=== PATIENT | male | born 1955 | race Caucasian/White ===

== ENCOUNTER 2017-06-09 08:15 | Outpatient (RCR) ==
--- NOTE | 2017-05-20 11:37 | RS.OPPTEV2 ---
Date of Note: 05/19/17 Visit #: 1 Date of Evaluation: 05/19/17 Payer Source: Insurance Surgery Performed?: Yes Treatment Diagnosis: Left knee pain, s/p medial and lateral meniscus repair History of Condition/Mechanism of Injury:: Patient reports left knee began in July of 2016. He thinks it may have occurred when he was climbing a ladder. States he had surgery on the left knee 3 months ago, which involved trimming tears from the medial and lateral meniscus. Prior Level of Function.....Patient was independent with: ADL's, Self Care, Work /Vocation, Caregiving, Ambulation/Mobility, Community Integration/Access Functional Limitations: Sitting, Standing, Bending, Squatting, Ambulation, Community Access/Integration Current Subjective/complaints:: Patient reports left knee continues to swell and have pain. States his surgery involved trimming both the medial and lateral meniscus. He reports that he has had no previous injuries or surgeries to the left knee. He denies tingling or numbness in the left LE. States he has been having swelling all the way into his ankle. States he has more knee pain with certain movements. He does not tolerate prolonged standing or walking , due to pain and increased swelling with activity. Also reports stiffness in the knee after he sits very long. Reports at times, turning over in bed will wake him up. 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 He wonders if having Psoriasis could be complicating his healing from his surgery. Treatment Side (optional): Left Medical History Medical History: Hypertension, Arthritis Medical History Comments:: Psoriasis Surgical History Comments:: Right knee arthroscopic surgery 20 years ago. Smoking Status: Never smoker Patient's Goals: His goal is to regain left knee AROM and return to his previous level of function. Pain Assessment - Pain Description Pain Location: left knee Current Pain Intensity: 0/10 Worst Pain Intensity: 7-8/10 Functional Outcome Measure LE Functional Scale: 30 (30/80=62.5% impairment) - G Codes & Severity Modifier G Codes & Modifier: NA Source of G Code score: NA Observation - Observation Inspection: Patient demonstrates clean, well-healing incisions to the left knee from his surgery. Demonstrates patches of Psoriasis throughout the LE. Demonstrates obvious swelling at the left knee and lower leg to the ankle. Girth Measurement Lower: Left LE: superior pole of patella: 44 cm, midpatella 41 cm, malleoli 36 cm Gait - Gait Pattern Gait Comments: Patient ambulates without an assistive device. Demonstrates decreased stance on the left LE. Also demonstrates decreased left hip and knee flexion and decreased heel strike. - Left Knee ROM Left Knee Extension: -10 degrees from full extension Left Knee Flexion: 100 (degrees AROM) Knee ROM Limitations: Soft Tissue Tightness, Pain - Right Knee ROM Right Knee Extension: full extension Right Knee Flexion: 130 (degrees AROM) - Left Knee Strength Left Knee Extension: 4 Good Left Knee Flexion: 4 Good - Right Knee Strength Right Knee Extension: 5 Normal Right Knee Flexion: 5 Normal Sensation - Sensation Right Lower Extremity: Intact/Normal Left Lower Extremity: Intact/Normal - Treatment Modality: Electrical Stim Unattended Parameters/Method Applied: 4 pads HVGS crossed current X 20 mins to the left knee with cold pack to reduce swelling. treatment up to 110 peak volts - Heat/Cryotherapy Treatment: Cryotherapy (with Estim ) Interventions - Exercise/Activities/Manual Therapy Exercises/Activities: Patient instructed in ankle pumps, SLR's, standing HS curls, and heel slides in supine for HEP. Discussed the knee joint and meniscus. Advised to avoid twisting his leg with his foot planted. Recommended he continue icing the knee. Manual Therapy: NA HOME EXERCISE PROGRAM: ankle pumps, SLR's, standing HS curls, and heel slides - Charges Total Direct Minutes: 35 mins Total Treatment Time: 55 mins Procedures billed for this date of service:: SHAREE Stewart , CP, Estim Assessment Assessment: Patient presents to therapy three months s/p repair (trimming) of the medial and lateral meniscus of the left knee. He reports having continued pain and swelling in the left knee and lower leg. He reports limited tolerance for weight bearing activities and stiffness following prolonged sitting. 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 He is unable to work, as he usually has to crawl on his knees and climb ladders. He will benefit from modalities to help reduce swelling and progression of exercises and use of manual therapy to regain functional AROM and reduce his pain with activity. Patient Education: Education of diagnosis, Body/Joint mechanics, Home Exercise Program, Home Safety, Activity Modification, Education of Plan of Care Rehab Potential: Good Short Term Goals Goal #1: Patient independent in basic HEP. Goal to be met by: 06/03/17 Goal #2: Left knee AROM full extension. Goal to be met by: 06/03/17 Goal #3: Left knee active flexion to 120 degrees. Goal to be met by: 06/03/17 Goal #4: Left quad strength improved to 4+/5. Goal to be met by: 06/03/17 Machine Shop Specialist Goals Goal #1: Pt will regain left knee AROM WFL's to perform all ADL's w/o difficulty. Goal to be met by: 06/24/17 Goal #2: Pt will amb. community distances with minimal gait deviation. Goal to be met by: 06/24/17 Goal #3: Score on LE functional scale improved to 55/80. Goal to be met by: 06/24/17 Goal #4: Pt to perform ADL's and functional activities with minimal left knee pain. Goal to be met by: 06/24/17 Plan - Treatment to be Provided Procedures: Therapeutic Exercises, Therapeutic Activity, Manual Therapy, Patient Education Modalities: Electrical Stimulation, Cryotherapy - Treatment Plan Frequency: 2 X week Duration: 4 weeks ORDER # VISITS AND/OR THROUGH DATE: 06/24/17 - Treatment Code (1) Knee pain Qualifiers: Chronicity: acute Laterality: left Qualified Description: Acute pain of left knee Qualifier Code(s): (M25.562) Pain in left knee (2) Knee effusion Qualifiers: Laterality: left Qualified Description: Effusion of left knee Qualifier Code(s): (M25.462) Effusion, left knee (3) S/P lateral meniscal repair Comments: Z98.890 S/p medial and lateral meniscus repair
--- NOTE | 2017-05-21 14:53 | RS.OPPTDN ---
Subjective Date of Note: 05/21/17 Visit #: 2 Date of Evaluation: 05/19/17 Payer Source: Insurance Treatment Diagnosis: Left knee pain, s/p medial and lateral meniscus repair Current Subjective/complaints:: Patient reports first treatment of cold pack and Estim to the left knee helped with pain and swelling. Pain Assessment - Pain Description Pain Location: left knee Current Pain Intensity: mild - Treatment Modality: Electrical Stim Unattended Parameters/Method Applied: [id number] HVGC to 150p.v. with 4 large pads to the left knee with cold pack. Patient Position: Supine - Heat/Cryotherapy Treatment: Cryotherapy ([id number] with Estim ) Interventions - Exercise/Activities/Manual Therapy Exercises/Activities: PROM left knee flexion and extension. Hamstring stretching. Ankle pumps and quad sets. SLR 4s/5reps and SLR/VMO 2s/5reps. Isometric hip add. SAQ and isometric ham sets, 2s/10reps each. Ended with additional ROM of the left and ham stretching. Total minutes of Exercise: 20mins Manual Therapy: NA HOME EXERCISE PROGRAM: ankle pumps, SLR's, standing HS curls, and heel Quad sets , SLR/VMO - Charges Total Direct Minutes: 20mins Total Treatment Time: 40mins Procedures billed for this date of service:: EX, CP, Estim unattended Assessment: Patient responding to modalities and gentle exercise. Patient Education: Body/Joint mechanics, Home Exercise Program, Home Safety, Activity Modification Patient demonstrates compliance with HEP?: Yes Short Term Goals Goal #1: Patient independent in basic HEP. Goal to be met by: 06/03/17 Progress towards Goal:: Progressing Goal #2: Left knee AROM full extension. Goal to be met by: 06/03/17 Progress towards Goal:: Progressing Goal #3: Left knee active flexion to 120 degrees. Goal to be met by: 06/03/17 Progress towards Goal:: Progressing Goal #4: Left quad strength improved to 4+/5. Goal to be met by: 06/03/17 Retirement Goals Goal #1: Pt will regain left knee AROM WFL's to perform all ADL's w/o difficulty. Goal to be met by: 06/24/17 Goal #2: Pt will amb. community distances with minimal gait deviation. Goal to be met by: 06/24/17 Goal #3: Score on LE functional scale improved to 55/80. Goal to be met by: 06/24/17 Goal #4: Pt to perform ADL's and functional activities with minimal left knee pain. Goal to be met by: 06/24/17 Plan PLAN OF CARE EXPIRES ON:: 06/24/17 ORDER # VISITS AND/OR THROUGH DATE: 06/24/17 PLAN: Continue Plan of Care
--- NOTE | 2017-05-24 09:21 | RS.OPPTDN ---
Subjective Date of Note: 05/24/17 Visit #: 3 Date of Evaluation: 05/19/17 Payer Source: Insurance Treatment Diagnosis: Left knee pain, s/p medial and lateral meniscus repair Current Subjective/complaints:: Patient reporrts no current pain at rest,but increases as the day progresses.He continues to feel the therapy is helping. Pain Assessment - Pain Description Pain Location: left knee Pain Description: Dull, Aching Current Pain Intensity: o at rest Worst Pain Intensity: 6-7 later in the day - Treatment Modality: Electrical Stim Unattended Parameters/Method Applied: 20 mins.high volt to L knee ,channel 1 @ 95 - 115 pv, channel 2 @ 125 - 145 pv. Patient Position: Supine - Heat/Cryotherapy Treatment: Cryotherapy (concurrent with e-stim) Interventions - Exercise/Activities/Manual Therapy Exercises/Activities: HEP review.PROM left knee flexion and extension. Hamstring stretching. Ankle pumps and quad sets. SLR 2/10 and SLR/VMO 2s/ 10reps. Ended session with standing hamstring curls. Manual Therapy: NA HOME EXERCISE PROGRAM: ankle pumps, SLR's, standing HS curls, and heel Quad sets , SLR/VMO - Charges Total Direct Minutes: 20 Total Treatment Time: 40 Procedures billed for this date of service:: cp,e-stim,ex 1 Assessment: Patient tolerates exercises well,no report of sharp pain .He reports tightness with passive heelslides as the flexion increases.He responds well to hamstring stretches today ,has soft end feel present.The L knee edema is lessening,he reports it does vary dependent upon amount of activity. Patient Education: Body/Joint mechanics, Home Exercise Program, Home Safety, Education of Plan of Care Patient demonstrates compliance with HEP?: Yes Short Term Goals Goal #1: Patient independent in basic HEP. Goal to be met by: 06/03/17 Progress towards Goal:: Progressing Goal #2: Left knee AROM full extension. Goal to be met by: 06/03/17 Progress towards Goal:: Progressing Goal #3: Left knee active flexion to 120 degrees. Goal to be met by: 06/03/17 Progress towards Goal:: Progressing Goal #4: Left quad strength improved to 4+/5. Goal to be met by: 06/03/17 Progress towards Goal:: Progressing Improvement Manager Goals Goal #1: Pt will regain left knee AROM WFL's to perform all ADL's w/o difficulty. Goal to be met by: 06/24/17 Goal #2: Pt will amb. community distances with minimal gait deviation. Goal to be met by: 06/24/17 Goal #3: Score on LE functional scale improved to 55/80. Goal to be met by: 06/24/17 Goal #4: Pt to perform ADL's and functional activities with minimal left knee pain. Goal to be met by: 06/24/17 Plan PLAN OF CARE EXPIRES ON:: 06/24/17 ORDER # VISITS AND/OR THROUGH DATE: 06/24/17 PLAN: Continue Plan of Care
--- NOTE | 2017-05-27 09:07 | RS.OPPTDN ---
Subjective Date of Note: 05/27/17 Visit #: 4 Date of Evaluation: 05/19/17 Payer Source: Insurance Treatment Diagnosis: Left knee pain, s/p medial and lateral meniscus repair Current Subjective/complaints:: Reports the knee feels swollen and tight currently,has slight antalgic gait this morning. Pain Assessment - Pain Description Pain Location: left knee Pain Description: Dull, Aching Current Pain Intensity: 0 at rest - Treatment Modality: Electrical Stim Unattended Parameters/Method Applied: 20 mins. high volt to L knee,channel 1 and 2 @ 155 - 185 pv. - Heat/Cryotherapy Treatment: Cryotherapy (concurrent with e - stim) Interventions - Exercise/Activities/Manual Therapy Exercises/Activities: 20 mins.HEP review.PROM left knee flexion and extension. Hamstring stretching. Ankle pumps and quad sets. SLR 3/10 and SLR VMO 1/10 reps.Passive extension on bolster x 30 secs. Total minutes of Exercise: 20 Manual Therapy: NA Total minutes of Manual Therapy: 0 HOME EXERCISE PROGRAM: ankle pumps, SLR's, standing HS curls, and heel Quad sets , SLR/VMO - Objective Findings Observations,measurements,etc.: 110 flexion ,-10 extension - Charges Total Direct Minutes: 20 Total Treatment Time: 40 Procedures billed for this date of service:: cp,e-stim,ex 1 Assessment: Patient has less warmth in the L knee today,has moderate edema medially.He has increased flexion .He reports sharp pain with attempting terminal extension with Qs or SAq. Patient Education: Education of diagnosis, Body/Joint mechanics, Home Exercise Program, Home Safety, Activity Modification, Education of Plan of Care Patient demonstrates compliance with HEP?: Yes Short Term Goals Goal #1: Patient independent in basic HEP. Goal to be met by: 06/03/17 Progress towards Goal:: Progressing Goal #2: Left knee AROM full extension. Goal to be met by: 06/03/17 Progress towards Goal:: No Change Goal #3: Left knee active flexion to 120 degrees. Goal to be met by: 06/03/17 Progress towards Goal:: Progressing Goal #4: Left quad strength improved to 4+/5. Goal to be met by: 06/03/17 Progress towards Goal:: Progressing Fdc Goals Goal #1: Pt will regain left knee AROM WFL's to perform all ADL's w/o difficulty. Goal to be met by: 06/24/17 Progress towards goal: Progressing Goal #2: Pt will amb. community distances with minimal gait deviation. Goal to be met by: 06/24/17 Goal #3: Score on LE functional scale improved to 55/80. Goal to be met by: 06/24/17 Goal #4: Pt to perform ADL's and functional activities with minimal left knee pain. Goal to be met by: 06/24/17 Plan PLAN OF CARE EXPIRES ON:: 06/24/17 ORDER # VISITS AND/OR THROUGH DATE: 06/24/17 PLAN: Continue Plan of Care
--- NOTE | 2017-06-02 16:43 | RS.OPPTDN ---
Subjective Date of Note: 06/02/17 Visit #: 5 Date of Evaluation: 05/19/17 Payer Source: Insurance Treatment Diagnosis: Left knee pain, s/p medial and lateral meniscus repair Current Subjective/complaints:: Patient c/o swelling today to the supra L patella extending to the foot. 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 Pain Assessment - Pain Description Pain Location: left knee Pain Description: Dull, Aching Current Pain Intensity: 0 at rest - Treatment Modality: Electrical Stim Unattended Parameters/Method Applied: hivolt 4 small pads @ 185 pk volts x 20 mins to the L knee following therex. Patient Position: Supine - Heat/Cryotherapy Treatment: Cryotherapy (L knee with estim) Interventions - Exercise/Activities/Manual Therapy Exercises/Activities: 22 mins. Passive stretching for hamstrings and heel cords , patellar mobs, SLR, SLR for VMO, AP, QS multiple reps, hip abd. Manual Therapy: NA HOME EXERCISE PROGRAM: ankle pumps, SLR's, standing HS curls, and heel Quad sets , SLR/VMO - Charges Total Direct Minutes: 22 Total Treatment Time: 42 Procedures billed for this date of service:: cp, estim (un), ex Assessment: Patient experiencing elevation of edema from the L knee to the foot probably related to increased activity at work. However, he was able to demo good flexibility with hamstring stretching today. Finished with estim to verify any improvement with swelling upon departure. Patient Education: Education of diagnosis, Body/Joint mechanics, Home Exercise Program, Home Safety, Activity Modification, Education of Plan of Care Patient demonstrates compliance with HEP?: Yes Short Term Goals Goal #1: Patient independent in basic HEP. Goal to be met by: 06/03/17 Progress towards Goal:: Progressing Goal #2: Left knee AROM full extension. Goal to be met by: 06/03/17 Progress towards Goal:: Progressing Goal #3: Left knee active flexion to 120 degrees. Goal to be met by: 06/03/17 Progress towards Goal:: Progressing Goal #4: Left quad strength improved to 4+/5. Goal to be met by: 06/03/17 Progress towards Goal:: Progressing Half-Way Goals Goal #1: Pt will regain left knee AROM WFL's to perform all ADL's w/o difficulty. Goal to be met by: 06/24/17 Progress towards goal: Progressing Goal #2: Pt will amb. community distances with minimal gait deviation. Goal to be met by: 06/24/17 Goal #3: Score on LE functional scale improved to 55/80. Goal to be met by: 06/24/17 Goal #4: Pt to perform ADL's and functional activities with minimal left knee pain. Goal to be met by: 06/24/17 Plan PLAN OF CARE EXPIRES ON:: 06/24/17 ORDER # VISITS AND/OR THROUGH DATE: 06/24/17 PLAN: Progress Exercises
--- NOTE | 2017-06-04 09:23 | RS.OPPTDN ---
Subjective Date of Note: 06/04/17 Visit #: 6 Date of Evaluation: 05/19/17 Payer Source: Insurance Treatment Diagnosis: Left knee pain, s/p medial and lateral meniscus repair Current Subjective/complaints:: Reports the L knee feels about the same, continues to swell more at the end of the day. Pain Assessment - Pain Description Pain Location: left knee Pain Description: Dull, Aching Current Pain Intensity: 2/10 - Treatment Modality: Electrical Stim Unattended Parameters/Method Applied: 20 mins. high volt,cross current to L knee,channel 1 @ 170 pv,channel 2 @ 190 pv. Patient Position: Supine - Heat/Cryotherapy Treatment: Cryotherapy (concurrent with e-stim) Interventions - Exercise/Activities/Manual Therapy Exercises/Activities: 20 mins. Passive stretching for hamstrings and heel cords , patellar mobs, SLR, SLR for VMO, AP, QS multiple reps, hip abd.Instructed in side-lying hip abduction. Total minutes of Exercise: 20 Manual Therapy: NA Total minutes of Manual Therapy: 0 HOME EXERCISE PROGRAM: ankle pumps, SLR's, standing HS curls, and heel Quad sets , SLR/VMO - Charges Total Direct Minutes: 20 Total Treatment Time: 40 Procedures billed for this date of service:: cp,e-stim,ex 1 Assessment: Patient has improved hamstring extensibility after stretches today.He reports no pain with isometrics,but pain elevates after 90 degrees flexion,described as dull ache.He is attentive to HEP ,motivated to improve. Patient Education: Education of diagnosis, Body/Joint mechanics, Home Exercise Program, Home Safety, Activity Modification, Education of Plan of Care Patient demonstrates compliance with HEP?: Yes Short Term Goals Goal #1: Patient independent in basic HEP. Goal to be met by: 06/03/17 Progress towards Goal:: Progressing Goal #2: Left knee AROM full extension. Goal to be met by: 06/03/17 Progress towards Goal:: Progressing Goal #3: Left knee active flexion to 120 degrees. Goal to be met by: 06/03/17 (pain today past 90 degrees) Progress towards Goal:: No Change Goal #4: Left quad strength improved to 4+/5. Goal to be met by: 06/03/17 Progress towards Goal:: Progressing Nursing Home Goals Goal #1: Pt will regain left knee AROM WFL's to perform all ADL's w/o difficulty. Goal to be met by: 06/24/17 Progress towards goal: Progressing Goal #2: Pt will amb. community distances with minimal gait deviation. Goal to be met by: 06/24/17 Progress towards goal: Progressing Goal #3: Score on LE functional scale improved to 55/80. Goal to be met by: 06/24/17 Goal #4: Pt to perform ADL's and functional activities with minimal left knee pain. Goal to be met by: 06/24/17 Progress towards goal: Progressing Plan PLAN OF CARE EXPIRES ON:: 06/24/17 ORDER # VISITS AND/OR THROUGH DATE: 06/24/17 PLAN: Continue Plan of Care
--- NOTE | 2017-06-07 09:23 | RS.OPPTDN ---
Subjective Date of Note: 06/07/17 Visit #: 7 Date of Evaluation: 05/19/17 Payer Source: Insurance Treatment Diagnosis: Left knee pain, s/p medial and lateral meniscus repair Current Subjective/complaints:: Patient feels the knee is improving,tolerating daily activities better. Pain Assessment - Pain Description Pain Location: left knee Pain Description: Dull, Aching Current Pain Intensity: 3/10 Other Comments regarding Pain:: has not taken pain meds - Treatment Modality: Electrical Stim Unattended Parameters/Method Applied: 20 mins. high volt to L knee channel 1 and 2 @ 220 pv. Patient Position: Supine - Heat/Cryotherapy Treatment: Cryotherapy (concurrent with e-stim ) Interventions - Exercise/Activities/Manual Therapy Exercises/Activities: 35 mins. total ,3/15 each of ankle pumps,hip abd/ adduction with green theraband,then 2 # resistance for SAQ's,SLR's,VMO SLR's.3/ 15 reps of hip abduction in R sidelying with 2# resistance.Ended session on leg press @ 60 # 3/15 ,then single L leg press,2/10 @ 15 #. Total minutes of Exercise: 35 Manual Therapy: NA Total minutes of Manual Therapy: 0 HOME EXERCISE PROGRAM: ankle pumps, SLR's, standing HS curls, and heel Quad sets , SLR/VMO - Charges Total Direct Minutes: 35 Total Treatment Time: 55 Procedures billed for this date of service:: cp,e-stim,ex 2 Assessment: Patient progressing , reports of less pain in the L knee during ADL' s.He tolerates exercises well,with occasional cues to control the speed of movement.He is attentive and motivated to improve. Patient Education: Education of diagnosis, Body/Joint mechanics, Home Exercise Program, Home Safety, Activity Modification, Education of Plan of Care Patient demonstrates compliance with HEP?: Yes Short Term Goals Goal #1: Patient independent in basic HEP. Goal to be met by: 06/03/17 Progress towards Goal:: Progressing Goal #2: Left knee AROM full extension. Goal to be met by: 06/03/17 Progress towards Goal:: Progressing Goal #3: Left knee active flexion to 120 degrees. Goal to be met by: 06/03/17 Progress towards Goal:: Progressing Goal #4: Left quad strength improved to 4+/5. 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 Goal to be met by: 06/24/17 Progress towards goal: Progressing Goal #2: Pt will amb. community distances with minimal gait deviation. Goal to be met by: 06/24/17 Progress towards goal: Progressing Goal #3: Score on LE functional scale improved to 55/80. Goal to be met by: 06/24/17 Goal #4: Pt to perform ADL's and functional activities with minimal left knee pain. Goal to be met by: 06/24/17 Progress towards goal: Progressing Plan PLAN OF CARE EXPIRES ON:: 06/24/17 ORDER # VISITS AND/OR THROUGH DATE: 06/24/17 PLAN: Progress Exercises
--- NOTE | 2017-06-09 09:21 | RS.OPPTDC ---
Date of Discharge: 06/09/17 Date of Evaluation: 05/19/17 Number of Visits: 8 Treatment Diagnosis: Left knee pain, s/p medial and lateral meniscus repair Current Level of Function: Independent in community. Current Complaints/Gains: Patirent pleased with his progress,feels the therapy has helped him.He is doing his HEP. Pain Assessment - Pain Description Pain Location: left knee Pain Description: Dull, Aching Current Pain Intensity: 3/10 Functional Outcome Measure LE Functional Scale: 49 - G Codes & Severity Modifier G Codes & Modifier: NA Source of G Code score: LE Functional Scale Gait - Gait Pattern General Gait Pattern Observation: Antalgic Gait (Antalgia improves as gait progresses) General Range of Motion: L knee flexion 119 degrees , extension -5 degrees Muscle Strength: 5-/5 quads and hamstrings - Treatment Modality: Electrical Stim Unattended Parameters/Method Applied: 20 mins. high volt to L knee ,channel 1 and 2 @240 pv Patient Position: Supine - Heat/Cryotherapy Treatment: Cryotherapy (concurrent with e-stim) Interventions - Exercise/Activities/Manual Therapy Exercises/Activities: 20 mins HEP review and return demo of ankle pumps,QS, SAQ, SLR,VMO SLR R side-lying hip abduction. Total minutes of Exercise: 20 Manual Therapy: NA Total minutes of Manual Therapy: 0 HOME EXERCISE PROGRAM: ankle pumps, SLR's, standing HS curls, and heel Quad sets , SLR/VMO - Charges Total Direct Minutes: 20 Total Treatment Time: 40 Procedures billed for this date of service:: cp,e-stim,ex 1 Assessment Assessment: Patient has progressed well,met or partially met rehab goals.He has good understanding of HEP.He is compliant to all recommendations of the therapy staff. Patient Education: Education of diagnosis, Body/Joint mechanics, Home Exercise Program, Home Safety, Activity Modification, Education of Plan of Care Rehab Potential: Good Short Term Goals Goal #1: Patient independent in basic HEP. Goal to be met by: 06/03/17 Progress towards Goal:: Met Goal #2: Left knee AROM full extension. Goal to be met by: 06/03/17 (-5) Progress towards Goal:: Partially Met Goal #3: Left knee active flexion to 120 degrees. Goal to be met by: 06/03/17 (117-119) Progress towards Goal:: Progressing Goal #4: Left quad strength improved to 4+/5. Goal to be met by: 06/03/17 Progress towards Goal:: Met Senior Living Goals Goal #1: Pt will regain left knee AROM WFL's to perform all ADL's w/o difficulty. Goal to be met by: 06/24/17 Progress towards goal: Met Goal #2: Pt will amb. community distances with minimal gait deviation. Goal to be met by: 06/24/17 Progress towards goal: Met Goal #3: Score on LE functional scale improved to 55/80. Goal to be met by: 06/24/17 (49/80) Progress towards goal: Progressing Goal #4: Pt to perform ADL's and functional activities with minimal left knee pain. Goal to be met by: 06/24/17 Progress towards goal: Met Plan Reason for Discharge:: No Further Skilled Therapy Indicated
== END 2017-06-14 ==
PROVIDERS: ATTEND Orthopaedic Surgery
DX: M23.222 Derangement of posterior horn of medial meniscus due to old tear or injury, left knee (principal); M23.052 Cystic meniscus, posterior horn of lateral meniscus, left knee